=== PATIENT | male | born 1940 | race Caucasian/White ===

== ENCOUNTER 2018-05-27 11:19 | Emergency (ER) | payer OTHER ==
[~2018-05-27] VITALS: Ht 172.7 cm; Wt 89.1 kg
[~2018-05-27 11:19] MED LIST: CALC650T90 PO; DICL75EC11 PO; DIPH25TA39 PO; HYDR-5123 PO; METO50TE2 PO; TAMS0.4C96 PO; VITA1SGL PO; ZOLP-159 PO
[2018-05-27 11:20] VITALS: BP 135/70
[2018-05-27] MEDS ORDERED: diphenhydrAMINE 50 MG/ML VIAL IVP ONE (11:40)
[2018-05-27] MEDS ORDERED: FAMOTIDINE 20 MG/2 ML VIAL IVP ONE (11:40)
[2018-05-27] MEDS ORDERED: methylPREDNISolone SS 125 MG/2 ML VIAL IVP ONE (11:40)
[2018-05-27] MEDS ORDERED: cefTRIAXone 1,000 MG in DEXT 5% MINI-BAG PLUS 50 ML IV ONE (11:40)
[2018-05-27] MEDS ORDERED: AZITHROMYCIN 500 MG in DEXTROSE 5% 250 ML IV ONE (11:40)
[2018-05-27] MEDS ORDERED: IPRATROPIUM 0.02% 0.5 MG/2.5 ML NEBU INH ONE (11:40)
[2018-05-27] MEDS ORDERED: ALBUTEROL 0.083% 2.5 MG/3 ML NEBU INH ONE (11:40)
[2018-05-27] MEDS ORDERED: cefTRIAXone 1,000 MG VIAL ONE (11:55)
[2018-05-27] MEDS ORDERED: AZITHROMYCIN 500 MG INJ VIAL IV ONE (11:56)
[2018-05-27 12:11] LABS: BASOPHILS % (AUTO) 0.3 % (0.0-2.0); EOSINOPHILS # (AUTO) 0.1 K/uL (0-0.4); EOSINOPHILS % (AUTO) 1.2 % (0.0-4.0); HEMATOCRIT 48.3 % (36-52); HEMOGLOBIN 16.3 g/dL (12.0-18.0); LYMPHOCYTES # (AUTO) 1.7 K/uL (2.0-11.5); LYMPHOCYTES % (AUTO) 14.4 % (20.5-51.1); MEAN CORPUSCULAR HEMOGLOBIN 30 pg (27-31); MEAN CORPUSCULAR HGB CONC 34 g/dL (33-37); MONOCYTES # (AUTO) 0.6 K/uL (0.8-1.0); MONOCYTES % (AUTO) 4.7 % (1.7-9.3); NEUTROPHILS # (AUTO) 9.5 K/uL (1.8-7.7); NEUTROPHILS % (AUTO) 79.4 % (42.2-75.2); PLATELET COUNT (AUTO) 187 K/uL (140-450); RED BLOOD CELL COUNT(AUTO) 5.43 MIL/uL (4.20-6.10); RED CELL DISTRIBUTION WIDTH 13.6 % (11.6-13.7)
[2018-05-27 12:27] LABS: ALBUMIN 3.5 g/dL (3.4-5.0); ANION GAP 9.9 (8-16); ASPARTATE AMINOTRANSFERASE 12 U/L (15-37); CARBON DIOXIDE 26.2 mmol/L (21-32); CHLORIDE 109 mmol/L (98-107); CREATININE 1.1 mg/dL (0.7-1.3); GLUCOSE 126 mg/dL (74-106); POTASSIUM 4.1 mmol/L (3.5-5.1); SODIUM SERUM 141 mmol/L (136-145); TOTAL BILIRUBIN 0.7 mg/dL (0.0-1.0); UREA NITROGEN, BLOOD 16 mg/dL (7-18)
[2018-05-27] MEDS ORDERED: HYDR-5123 PO (12:31)
[2018-05-27] MEDS ORDERED: [UNRECOGNIZED DRUG - CODE] PO (12:31)
[2018-05-27 14:15] LABS: APPEARANCE,URINE SLIGHTLY CLOUDY (CLEAR); BILIRUBIN,URINE NEGATIVE (NEGATIVE); BLOOD, URINE NEGATIVE (NEGATIVE); COLOR,URINE YELLOW (YELLOW); LEUKOCYTE ESTERASE ,URINE 1+ (NEGATIVE); NITRITE, URINE POSITIVE (NEGATIVE); PH,URINE 5.5 (5.0-9.0); UGLUCOSE NEGATIVE (NEGATIVE)
[2018-05-27 14:24] VITALS: BP 128/73
[2018-05-27 14:24] LABS: RBC,URINE 0-5 (RARE) /HPF (0-5)
[2018-05-27 14:25] LABS: WBC,URINE 60-80 /HPF (0-5)
== END 2018-05-27 14:24 | disposition home or self-care (01) ==
LOC: MED 11:19
DX: J45.909 Unspecified asthma, uncomplicated (principal); I10 Essential (primary) hypertension; Z79.899 Other long term (current) drug therapy
CPT/HCPCS: 36415; 71045; 80053; 81001; 84484; 85025; 87040; 87086; 87186; 94640; 96365; 96368; 96375; 99284; J0456; J0696; J1200; J2930; J3490; J7613; J7644; Q0092

== ENCOUNTER 2018-08-19 07:31 | Inpatient (IN) | payer OTHER ==
[~2018-08-19] VITALS: Ht 167.6 cm; Wt 89.1 kg
[~2018-08-19 07:31] MED LIST changes: -CALC650T90 PO; -DICL75EC11 PO; -DIPH25TA39 PO; -TAMS0.4C96 PO; -VITA1SGL PO; -ZOLP-159 PO; +[UNRECOGNIZED DRUG - CODE] PO
[2018-08-19 07:36] VITALS: BP 139/97
--- NOTE | 2018-08-19 07:45 | NUR ---
Patient ambulated to bed 9. RN evaluating patient at bedside.
--- NOTE | 2018-08-19 07:50 | NUR ---
Dr. Rubin evaluating patient at bedside.
--- NOTE | 2018-08-19 08:00 | NUR ---
bindery technician at bedside.
--- NOTE | 2018-08-19 08:04 | NUR ---
C/O COUGH AND SOB X1 WEEK. PT REPORTS MOIST PRODUCTIVE COUGH WITH THICK YELLOW PLEM. PT TACHYPNIEC, WHEEZES THROUGHOUT. PT REPORTS 7/10 BODY ACHES. DENIES N/V/D OR FEVER. . DENIES N/V/D; SKIN IS PINK/WARM/DRY; AAOX4 WITH EVEN AND STEADY GAIT; LUNGS CLEAR BL; HR EVEN AND REGULAR; PT DENIES ANY FEVER, CP, OR COUGH AT THIS TIME; PATIENT STATES PAIN OF 7/10 AT THIS TIME; VSS; PATIENT POSITIONED FOR COMFORT; HOB ELEVATED; BEDRAILS UP X2; BED DOWN. ER MD MADE AWARE OF PT STATUS.
--- NOTE | 2018-08-19 08:06 | NUR ---
EKG completed at bedside by EMT.
[2018-08-19 08:44] LABS: BASOPHILS # (AUTO) 0.1 K/uL (0.00-0.22); BASOPHILS % (AUTO) 0.7 % (0.0-2.0); EOSINOPHILS # (AUTO) 0.4 K/uL (0-0.4); HEMATOCRIT 48.1 % (36-52); HEMOGLOBIN 16.4 g/dL (12.0-18.0); LYMPHOCYTES # (AUTO) 1.5 K/uL (2.0-11.5); LYMPHOCYTES % (AUTO) 10.1 % (20.5-51.1); MEAN CORPUSCULAR HEMOGLOBIN 30 pg (27-31); MEAN CORPUSCULAR HGB CONC 34 g/dL (33-37); MEAN CORPUSCULAR VOLUME 88.8 fL (80-94); MONOCYTES # (AUTO) 0.9 K/uL (0.8-1.0); MONOCYTES % (AUTO) 5.9 % (1.7-9.3); NEUTROPHILS # (AUTO) 11.7 K/uL (1.8-7.7); NEUTROPHILS % (AUTO) 80.3 % (42.2-75.2); PLATELET COUNT (AUTO) 169 K/uL (140-450); RED BLOOD CELL COUNT(AUTO) 5.42 MIL/uL (4.20-6.10); RED CELL DISTRIBUTION WIDTH 14.6 % (11.6-13.7); WHITE BLOOD COUNT (AUTO) 14.5 K/uL (4.8-10.8)
[2018-08-19 08:54] LABS: CHLORIDE 101 mmol/L (98-107); POTASSIUM 3.8 mmol/L (3.5-5.1); SODIUM SERUM 139 mmol/L (136-145)
[2018-08-19 08:55] LABS: ANION GAP 19.6 (8-16); CARBON DIOXIDE 22.2 mmol/L (21-32); CREATININE 1.2 mg/dL (0.7-1.3); GLUCOSE 176 mg/dL (74-106); UREA NITROGEN, BLOOD 11 mg/dL (7-18)
[2018-08-19] MEDS ORDERED: NACL 0.9% 1,000 ML IV ONE (08:55)
[2018-08-19 09:00] LABS: ALBUMIN 3.3 g/dL (3.4-5.0); ASPARTATE AMINOTRANSFERASE 18 U/L (15-37); TOTAL BILIRUBIN 1.2 mg/dL (0.0-1.0)
[2018-08-19] MEDS ORDERED: DOXYCYCLINE 100 MG in DEXTROSE 5% 100 ML IV STA (09:32)
[2018-08-19] MEDS ORDERED: cefTRIAXone 1,000 MG VIAL ONE (09:49)
--- NOTE | 2018-08-19 10:00 | NUR ---
Dr. Rubin re-evaluating patient at bedside.
[2018-08-19] MEDS ORDERED: DOCUSATE SODIUM 100 MG GELCAP PO PRN (10:35)
[2018-08-19] MEDS ORDERED: MORPHINE SULFATE 2 MG/ML SYR IVP PRN (10:35)
[2018-08-19] MEDS ORDERED: HYDROcodone/APAP 5/325 MG 1 TAB TAB PO PRN (10:35)
[2018-08-19] MEDS ORDERED: ACETAMINOPHEN 325 MG TAB PO PRN (10:35)
[2018-08-19] MEDS ORDERED: ONDANSETRON 4 MG/2 ML VIAL IM/IVP PRN (10:35)
--- NOTE | 2018-08-19 10:45 | NUR ---
Dr. Arora evaluating patient at bedside.
[2018-08-19 11:07] LABS: MAGNESIUM 1.8 mg/dL (1.8-2.4); PHOSPHORUS 3.1 mg/dL (2.5-4.9); THYROID STIMULATING HORMONE 1.43 uIU/mL (0.34-3.74)
[2018-08-19] MEDS ORDERED: ALBUTEROL SULFATE/IPRATROPIU 3 ML SOL IH PRN (11:15)
[2018-08-19 11:30] VITALS: BP 121/85
--- NOTE | 2018-08-19 11:30 | NUR ---
PATIENT ARRIVED UNIT VIA GURNEY ACCOMPANIED BY ER NURSE AND DAUGHTER. PATIENT IS ALERT AND ORIENTED, SLOVENIAN SPEAKING ONLY. ABLE TO FOLLOW SIMPLE COMMAND AND MAKE NEEDS KNOWN. RESPIRATION EVEN AND UNLABORED ON 2LPM VIA NC. DENIES PAIN AND SOB. IV ON R HAND 22G, PATENT AND INTACT, ON NS WIDE OPEN BOLUS. SKIN INTACT AND DRY. ABLE TO AMBULATE WITH ASSIST. CONTINENT. PROVIDED BEDSIDE URANAL. ORIENTED PATIENT TO THE ROOM AND HOW TO USE THE CALL LIGHT, TV, BED REMOTE, TELEPHONE AND BATHROOM. PATIENT AND DAUGHTER VERBALIZED UNDERSTANDING. DISCUSSED PLAN OF CARE WITH PATIENT AND DAUGHTER, BOTH VERBALIZED OK. CHANGED PATIENT INTO YELLOW GOWN, SOCKS, AND APPLIED YELLOW WRIST BAND. BED ALARM ACTIVATED. VITAL SIGNS TAKEN AND MRSA NARES COLLECTED. CONTACT PRECAUTION INITIALED. TELE MONITOR ATTACHED. BED IN LOW POSITION AND CALL LIGHT WITHIN REACH. INSTRUCTED PATIENT TO USE THE CALL LIGHT FOR ANY ASSISTANCE AND PATIENT WAS AWARE.
--- NOTE | 2018-08-19 11:30 | NUR ---
transferred pt to tele 116 by mick with rn and mt. pt awake, alert. no s/s of respiratory distress noted. pt's daughter with pt. pt walked from hallway to pt's room. all personal belongings with pt.
--- NOTE | 2018-08-19 11:31 | NUR ---
report given to nancy, notified nancy pt was on piggybag abx and pt's iv # 24 so bolus does not finish yet.
[2018-08-19] MEDS ORDERED: ASPI-1718 PO (11:45)
[2018-08-19] MEDS ORDERED: HYDROcodone/APAP 7.5/325 MG 1 TAB PO SCH (11:45)
--- NOTE | 2018-08-19 11:45 | NUR ---
RECEIVED CRITICAL LAB VALUE FOR LACTIC ACID 2.6. NOTIFIED DR MARY AND HE WAS AWARE.
--- NOTE | 2018-08-19 11:50 | NUR ---
PROVIDED SPUTUM SPECIMEN CUP TO PATIENT AND INSTRUCTED PATIENT TO SPIT INTO THE CUP. ALSO PROVIDED INCENTIVE SPIROMETER TO PATIENT. EDUCATION PROVIDED TO PATIENT AND DAUGHTER SANDI AT BEDSIDE. SAFETY MEASURES IN PLACE.
[2018-08-19] MEDS ORDERED: HYDROcodone/APAP 7.5/325 MG 1 TAB PO PRN (11:55)
[2018-08-19] MEDS ORDERED: ASPIRIN 81 MG TAB.CHEW PO SCH (12:30)
[2018-08-19] MEDS: NACL 0.9% 1,000 ML IV SCH ×2 (12:59→20:32)
--- NOTE | 2018-08-19 13:11 | NUR ---
PATIENT IS SITTING UP ON BED AND EATING LUNCH. NO SIGNS OF DISTRESS NOTED. SAFETY MEASURES IN PLACE. TELE MONITOR IN PLACE.
[2018-08-19] MEDS: ALBUTEROL SULFATE/IPRATROPIU 3 ML SOL IH SCH ×2 (13:48→19:56)
[2018-08-19 16:00] VITALS: BP 137/77
--- NOTE | 2018-08-19 17:01 | NUR ---
PATIENT'S IV ON L HAND INFILTRATED. D/C IV AND CANNULA INTACT. STARTED IV ON LFA 22G, INTACT AND PATENT, INFUSING PER MD ORDER. PATIENT TOLERATED WELL. PATIENT'S FAMILY IS AT BEDSIDE. NO SIGNS OF DISTRESS NOTED. SAFETY MEASURE IN PLACE. TELE MONITOR ATTACHED.
--- NOTE | 2018-08-19 18:25 | NUR ---
PATIENT IS TALKING TO FAMILY AT BEDSIDE. NO SIGNS OF DISTRESS NOTED. SAFETY MEASURES IN PLACE. TELE MONITOR ATTACHED.
--- NOTE | 2018-08-19 19:30 | NUR ---
ENDORSED PATIENT AT BEDSIDE TO AMMONIA WORKER NURSE FOR CONTINUITY OF CARE. PATIENT IS IN A STABLE CONDITION.
--- NOTE | 2018-08-19 19:31 | NUR ---
RECEIVED REPORT FROM DAY SHIFT NURSE PEEWEE-RN AT BEDSIDE. AOX4-MOHAWK SPEAKING WITH FAMILY AT BEDSIDE. PT RESTING IN BED, ON 3L/NC WITH LEFT FA #22G RUNNING NS 0.9% @100ML/HR. DISCUSSED PLAN OF CARE AND PT VERBALIZED UNDERSTANDING. NO S/S OF RESPIRATORY DISTRESS OR DISCOMFORT NOTED AT THIS TIME. BED IN LOWEST POSITION, BED BREAKS ON, BOTH SIDE RAILS UP AND FALL PRECAUTIONS IN PLACE. BEDSIDE TABLE AND CALL LIGHT ARE WITHIN REACH. WILL CONTINUE TO MONITOR.
[2018-08-19 20:00] VITALS: BP 130/60
--- NOTE | 2018-08-19 20:00 | NUR ---
VITAL SIGNS TAKEN AND TOLERATED WELL. NO S/S OF RESPIRATORY DISTRESS OR DISCOMFORT NOTED AT THIS TIME. WILL CONTINUE TO MONITOR.
[2018-08-19] MEDS: traZODone 50 MG TAB PO SCH (21:06)
--- NOTE | 2018-08-19 21:12 | NUR ---
SCHEDULED MEDICATIONS GIVEN AND TOLERATED WELL. NO S/S OF RESPIRATORY DISTRESS OR DISCOMFORT NOTED AT THIS TIME. WILL CONTINUE TO MONITOR.
--- NOTE | 2018-08-19 22:00 | NUR ---
PT SLEEPING IN BED. NO S/S OF RESPIRATORY DISTRESS OR DISCOMFORT NOTED AT THIS TIME. WILL CONTINUE TO MONITOR.
[2018-08-20] VITALS: BP 106/49
--- NOTE | 2018-08-20 | NUR ---
VITAL SIGNS TAKEN AND TOLERATED WELL. NO S/S OF RESPIRATORY DISTRESS OR DISCOMFORT NOTED AT THIS TIME. WILL CONTINUE TO MONITOR.
--- NOTE | 2018-08-20 01:29 | NUR ---
RECEIVED A CRITICAL LAB VALUE: TROPONIN 0.[address] ESTEFANY ZABALA AND MD IS AWARE. NO NEW ORDERS. PT SLEEPING IN BED. NO S/S OF RESPIRATORY DISTRESS OR DISCOMFORT NOTED AT THIS TIME. WILL CONTINUE TO MONITOR.
--- NOTE | 2018-08-20 02:00 | NUR ---
PT SLEEPING IN BED. NO S/S OF RESPIRATORY DISTRESS OR DISCOMFORT NOTED AT THIS TIME. WILL CONTINUE TO MONITOR.
[2018-08-20 04:00] VITALS: BP 125/62
--- NOTE | 2018-08-20 04:00 | NUR ---
VITAL SIGNS TAKEN AND TOLERATED WELL. NO S/S OF RESPIRATORY DISTRESS OR DISCOMFORT NOTED AT THIS TIME. WILL CONTINUE TO MONITOR.
--- NOTE | 2018-08-20 06:00 | NUR ---
PT RESTING IN BED. NO S/S OF RESPIRATORY DISTRESS OR DISCOMFORT NOTED AT THIS TIME. WILL CONTINUE TO MONITOR.
[2018-08-20] MEDS: NACL 0.9% 1,000 ML IV SCH ×2 (06:32→16:32)
--- NOTE | 2018-08-20 07:09 | NUR ---
ENDORSED PT CARE TO DAY SHIFT NURSE YONATAN FOR CONTINUITY OF CARE.
--- NOTE | 2018-08-20 07:11 | NUR ---
RECEIVED BEDSIDE REPORT FROM TIME STUDY ANALYST NURSE. PATIENT IS RESTING ON BED AT THIS TIME. PATIENT IS ALERT AND ORIENTED, MALAY SPEAKING ONLY. ABLE TO FOLLOW SIMPLE COMMAND AND MAKE NEEDS KNOWN. RESPIRATION EVEN AND UNLABORED ON 2LPM VIA NC. DENIES PAIN AND SOB. IV ON R HAND 22G, PATENT AND INTACT, INFUSING PER MD ORDER. SKIN INTACT AND DRY. ABLE TO AMBULATE WITH ASSIST. CONTINENT. PROVIDED BEDSIDE URANAL. DISCUSSED PLAN OF CARE WITH PATIENT AND PATIENT VERBALIZED OK. CONTACT PRECAUTION INITIALED. TELE MONITOR ATTACHED. BED IN LOW POSITION AND CALL LIGHT WITHIN REACH. INSTRUCTED PATIENT TO USE THE CALL LIGHT FOR ANY ASSISTANCE AND PATIENT WAS AWARE.
[2018-08-20] MEDS: ALBUTEROL SULFATE/IPRATROPIU 3 ML SOL IH SCH ×3 (07:33→20:30)
[2018-08-20 07:50] LABS: CHOL/HDL RATIO 4.4 (1-4.5)
[2018-08-20 08:00] VITALS: BP 135/97
--- NOTE | 2018-08-20 08:10 | NUR ---
COLLECTED URINE SPECIMEN VIA VOID AND DELIVERED IT TO LAB.
--- NOTE | 2018-08-20 08:18 | NUR ---
PATIENT HAS BEEN SCREENED AND CATEGORIZED HIGH NUTRITION RISK. PATIENT WILL BE SEEN WITHIN 1-2 DAYS OF ADMISSION. 08/20/18-08/21/[address]
[2018-08-20 08:26] LABS: BASOPHILS % (AUTO) 0.5 % (0.0-2.0); EOSINOPHILS # (AUTO) 0.3 K/uL (0-0.4); EOSINOPHILS % (AUTO) 3.8 % (0.0-4.0); HEMATOCRIT 42.9 % (36-52); HEMOGLOBIN 14.5 g/dL (12.0-18.0); LYMPHOCYTES # (AUTO) 2.1 K/uL (2.0-11.5); LYMPHOCYTES % (AUTO) 23.2 % (20.5-51.1); MEAN CORPUSCULAR HEMOGLOBIN 30 pg (27-31); MEAN CORPUSCULAR HGB CONC 34 g/dL (33-37); MEAN CORPUSCULAR VOLUME 89.7 fL (80-94); MONOCYTES # (AUTO) 0.6 K/uL (0.8-1.0); NEUTROPHILS # (AUTO) 6.1 K/uL (1.8-7.7); NEUTROPHILS % (AUTO) 65.5 % (42.2-75.2); PLATELET COUNT (AUTO) 161 K/uL (140-450); RED BLOOD CELL COUNT(AUTO) 4.78 MIL/uL (4.20-6.10); RED CELL DISTRIBUTION WIDTH 14.8 % (11.6-13.7); WHITE BLOOD COUNT (AUTO) 9.2 K/uL (4.8-10.8)
--- NOTE | 2018-08-20 08:33 | NUR ---
INSTRUCTED VISITORS TO PUT ON PPE PRIOR TO ENTER THE PATIENT ROOM FOR CONTACT ISOLATION AND VISITORS ARE AWARE. DAUGHTER SANDI IS AT BEDSIDE AND TALKING TO PATIENT. NO SIGNS OF DISTRESS NOTED.
[2018-08-20 08:40] LABS: ANION GAP 8.9 (8-16); CARBON DIOXIDE 28.1 mmol/L (21-32); CHLORIDE 108 mmol/L (98-107); GLUCOSE 122 mg/dL (74-106); SODIUM SERUM 141 mmol/L (136-145); UREA NITROGEN, BLOOD 10 mg/dL (7-18)
[2018-08-20 08:41] LABS: APPEARANCE,URINE CLEAR (CLEAR); BILIRUBIN,URINE NEGATIVE (NEGATIVE); BLOOD, URINE NEGATIVE (NEGATIVE); COLOR,URINE YELLOW (YELLOW); LEUKOCYTE ESTERASE ,URINE 1+ (NEGATIVE); NITRITE, URINE NEGATIVE (NEGATIVE); PH,URINE 5.5 (5.0-9.0); UGLUCOSE NEGATIVE (NEGATIVE)
[2018-08-20 08:42] LABS: PHOSPHORUS 3.6 mg/dL (2.5-4.9)
--- NOTE | 2018-08-20 08:45 | NUR ---
RECEIVED CRITICAL LAB VALUE FOR TROPONIN 0.[address] BECKHAM. DR BECKHAM WAS AWARE OF THE TROPONIN LAB VALUE.
[2018-08-20 08:56] LABS: RBC,URINE 0-5 /HPF (0-5); WBC,URINE 20-60 /HPF (0-5)
[2018-08-20] MEDS ORDERED: AZITHROMYCIN 500 MG in DEXTROSE 5% 250 ML IV SCH (09:00)
[2018-08-20] MEDS ORDERED: ASPIRIN 81 MG TAB.CHEW PO SCH (09:00)
[2018-08-20] MEDS: LORATADINE 10 MG TAB PO SCH (09:28)
[2018-08-20] MEDS: ASPIRIN 81 MG TAB.CHEW PO SCH (09:28)
[2018-08-20] MEDS: FAMOTIDINE 20 MG TAB PO SCH (09:28)
[2018-08-20] MEDS: LACTOBACILLUS RHAMNOSUS GG 1 EACH CAP PO SCH (09:29)
[2018-08-20] MEDS: METOPROLOL SUCCINATE 50 MG TABER PO SCH (09:29)
--- NOTE | 2018-08-20 09:48 | NUR ---
ADMINISTERED MEDS PER MD ORDER, PATIENT TOLERATED WELL. PATIENT IS RESTING ON BED AND TALKING TO DAUGHTER PETRA AT BEDSIDE. NO SIGNS OF DISTRESS NOTED. SAFETY MEASURES IN PLACE. TELE MONITOR ATTACHED.
--- NOTE | 2018-08-20 10:47 | NUR ---
PATIENT'S IV INFILTRATED, D/C IV AND CANNULA INTACT, MINIMAL BLEEDING AT IV SITE. STARTED NEW IV ON RFA 22, INTACT AND PATENT, CONTINUE INFUSING PER MD ORDER. PATIENT TOLERATED WELL. DAUGHTER PETRA IS AT BEDSIDE. NO SIGNS OF DISTRESS NOTED. SAFETY MEASURES IN PLACE.
[2018-08-20 12:00] VITALS: BP 148/75
--- NOTE | 2018-08-20 12:02 | NUR ---
08/20/18 RD INITIAL ASSESSMENT COMPLETED PLEASE REFER TO NUTRITION ASSESSMENT UNDER CARE ACTIVITY FOR ESTIMATED NUTRITIONAL NEEDS. RD RECOMMENDATIONS: 1. CONTINUE CARDIAC DIET TOLERATED. 2. RD PROVIDED VERBAL AND WRITTEN DIET EDUCATION ON CARDIAC DIET TO PT AND PT�S DAUGHTER. 3. RD WILL F/U 3-5 DAYS; MODERATE RISK. JENNIFER CEDENO, SONU
[2018-08-20] MEDS ORDERED: BENZONATATE 100 MG CAPLF PO SCH (12:27)
--- NOTE | 2018-08-20 13:15 | NUR ---
PATIENT IS SITTING UP ON A CHAIR AND TALKING TO VISITORS. DENIES PAIN AND SOB. NO SIGNS OF DISTRESS NOTED. TELE MONITOR ATTACHED. SAFETY MEASURES IN PLACE.
--- NOTE | 2018-08-20 15:32 | NUR ---
PATIENT IS TALKING TO VISITORS AT BEDSIDE, DENIES PAIN AND SOB. NO SIGNS OF DISTRESS NOTED. TELE MONITOR ATTACHED. SAFETY MEASURES IN PLACE.
[2018-08-20 16:00] VITALS: BP 137/81
--- NOTE | 2018-08-20 19:30 | NUR ---
ENDORSED PATIENT AT BEDSIDE TO SURGICAL INSTRUMENT MECHANIC NURSE FOR CONTINUITY OF CARE. PATIENT IS IN STABLE CONDITION.
[2018-08-20 20:00] VITALS: BP 132/80
[2018-08-20] MEDS: traZODone 50 MG TAB PO SCH (20:52)
--- NOTE | 2018-08-20 20:58 | NUR ---
PATIENT LYING DOWN IN BED WATCHING TV. NO DISTRESS NOTED. DENIES ANY PAIN. SCHEDULED MEDICATIONS DUE GIVEN. WILL CONTINUE TO MONITOR.
--- NOTE | 2018-08-20 23:15 | NUR ---
PATIENT LYING DOWN IN BED SLEEPING, AROUSABLE BY VOICE. NO DISTRESS NOTED. DENIES ANY PAIN. WILL CONTINUE TO MONITOR.
[2018-08-21] VITALS: BP 145/84
--- NOTE | 2018-08-21 01:33 | NUR ---
PATIENT LYING DOWN IN BED SLEEPING, AROUSABLE BY VOICE. CONDITION UNCHANGED. WILL CONTINUE TO MONITOR.
[2018-08-21] MEDS: NACL 0.9% 1,000 ML IV SCH ×3 (02:32→22:32)
--- NOTE | 2018-08-21 02:52 | NUR ---
PATIENT LYING DOWN IN BED SLEEPING, AROUSABLE BY VOICE. NO DISTRESS NOTED. CONDITION UNCHANGED. WILL CONTINUE TO MONITOR.
[2018-08-21 04:00] VITALS: BP 125/75
--- NOTE | 2018-08-21 07:20 | NUR ---
RECEIVED PT REPORT FROM ICT EDUCATOR NURSE. PT IS AWAKE AND ALERT, NO S/S OF ACUTE DISTRESS NOTED. PT IS ON 2L O2 NC, SKIN INTACT. FALL PRECAUTIONS AND CONTACT ISOLATION ARE IN PLACE. IV SITE NOTED ON THE RFA, 22 G, INFUSING NS 100 ML/HR. CALL LIGHT WITHIN REACH. WILL CONTINUE TO MONITOR PT.
--- NOTE | 2018-08-21 07:20 | NUR ---
GAVE REPORT TO AM NURSE FOR CONTINUITY FOR CARE. PATIENT IN STABLE CONDITION.
[2018-08-21 08:00] VITALS: BP 164/81
[2018-08-21] MEDS: ALBUTEROL SULFATE/IPRATROPIU 3 ML SOL IH SCH ×3 (08:10→18:59)
[2018-08-21 08:42] LABS: SODIUM SERUM 142 mmol/L (136-145)
[2018-08-21 08:43] LABS: ANION GAP 10.9 (8-16); CARBON DIOXIDE 28.1 mmol/L (21-32); CHLORIDE 107 mmol/L (98-107); GLUCOSE 109 mg/dL (74-106); UREA NITROGEN, BLOOD 8 mg/dL (7-18)
[2018-08-21] MEDS: LACTOBACILLUS RHAMNOSUS GG 1 EACH CAP PO SCH (08:46)
[2018-08-21] MEDS: METOPROLOL SUCCINATE 50 MG TABER PO SCH (08:47)
[2018-08-21] MEDS: ASPIRIN 81 MG TAB.CHEW PO SCH (08:47)
[2018-08-21] MEDS: FAMOTIDINE 20 MG TAB PO SCH (08:47)
[2018-08-21] MEDS: LORATADINE 10 MG TAB PO SCH (08:47)
[2018-08-21 09:04] LABS: BASOPHILS % (AUTO) 0.5 % (0.0-2.0); EOSINOPHILS # (AUTO) 0.4 K/uL (0-0.4); EOSINOPHILS % (AUTO) 4.2 % (0.0-4.0); HEMATOCRIT 43.6 % (36-52); HEMOGLOBIN 14.7 g/dL (12.0-18.0); LYMPHOCYTES # (AUTO) 1.7 K/uL (2.0-11.5); LYMPHOCYTES % (AUTO) 20.5 % (20.5-51.1); MEAN CORPUSCULAR HEMOGLOBIN 30 pg (27-31); MEAN CORPUSCULAR HGB CONC 34 g/dL (33-37); MEAN CORPUSCULAR VOLUME 89.9 fL (80-94); MONOCYTES # (AUTO) 0.6 K/uL (0.8-1.0); MONOCYTES % (AUTO) 7.3 % (1.7-9.3); NEUTROPHILS # (AUTO) 5.8 K/uL (1.8-7.7); NEUTROPHILS % (AUTO) 67.5 % (42.2-75.2); PLATELET COUNT (AUTO) 185 K/uL (140-450); RED BLOOD CELL COUNT(AUTO) 4.84 MIL/uL (4.20-6.10); RED CELL DISTRIBUTION WIDTH 14.4 % (11.6-13.7); WHITE BLOOD COUNT (AUTO) 8.5 K/uL (4.8-10.8)
--- NOTE | 2018-08-21 09:05 | NUR ---
AM MEDS ADMINISTERED, PT TOLERATED WELL. BED LINENS CHANGED. VISITORS ARE AT BEDSIDE.
[2018-08-21] MEDS ORDERED: BENZONATATE 100 MG CAPLF PO ONE (09:45)
[2018-08-21 12:00] VITALS: BP 152/81
[2018-08-21 12:07] LABS: MAGNESIUM 1.9 mg/dL (1.8-2.4); PHOSPHORUS 2.9 mg/dL (2.5-4.9)
[2018-08-21] MEDS: BENZONATATE 100 MG CAPLF PO PRN ×2 (12:58→21:32)
--- NOTE | 2018-08-21 15:15 | NUR ---
PT TAKING A SHOWER AT THIS TIME, HIS DAUGHTER SANDI IS ASSISTING HIM. SHOWER SUPPLIES GIVEN TO PT AND BED LINENS CHANGED.
[2018-08-21 16:00] VITALS: BP 143/92
--- NOTE | 2018-08-21 19:15 | NUR ---
PT ENDORSED TO SOUND SYSTEM INSTALLER IN STABLE CONDITION.
--- NOTE | 2018-08-21 19:15 | NUR ---
RECEIVED REPORT FROM SANDI JEFFRIES DAYSHIFT NURSE, PT IN STABLE CONDITION.
[2018-08-21 20:00] VITALS: BP 169/82
--- NOTE | 2018-08-21 20:00 | NUR ---
PT IN ROOM FAMILY AT BEDSIDE. HE IS SITTING UP AOX4 WITH 2 LITERS VIA N/C IN PLACE. PT HAS IV SITE R F/A 22G RUNNING N/S AT LOO. PT NOTED WITH INTERMITTED COUGH NO PHLEGM PRODUCTION NOTED. PT LUNG SOUNDS DIMINISHED, PT ENCOURAGE TO USE INCENTIVE SPIROMETER AT BEDSIDE. PT HAS NO C/O OF PAIN AT THIS TIME. SCD PLACE D ON PT LOWER EXTREMITIES. PT EXPLAINED THROUGH EXTRACTOR OPERATOR HELPER THAT HE DOSENT LIKE LIZ BUT UNDERSTAND WHY THEY ARE ORDERED, HE SAID HE WOULD TRY AND TOLERATE THEM. BUT MAY OPT NOT TO WEAR THEM. PRIMARY NURSE VERBALIZED UNDERSTANDING. V/S FOLLOWS T 97.5 P 76 R 18 B/P 169/82 02 94% ON 2 LITERS VIA N/C. ALL FALLS AND CONTACT PRECAUTIONS IN PLACE.
[2018-08-21] MEDS: traZODone 50 MG TAB PO SCH (21:31)
--- NOTE | 2018-08-21 21:49 | NUR ---
SPOKE WITH DR. COLE CONCERNING PT B/P, NEW ORDERED NOTED FOR 1X VASOTEC 2.5MG IVP WILL CONTINUE TO MONITOR BLOOD PRESSURE, PT ALSO GIVEN PRN TELSON PERLES FOR UNPRODUCTIVE COUGH.
[2018-08-21] MEDS ORDERED: ENALAPRILAT 2.5 MG/2 ML VIAL IVP SCH (22:00)
--- NOTE | 2018-08-21 23:00 | NUR ---
PT IN BED SLEEPING, NO S/S OF PAIN OR DISTRESS NOTED V/S FOLLOWS T 98.1. P 60 R 18 B/P 128/60 02 96% WITH 2 LITERS VIA N/C. PT WAS FOUND WITH IV PULLED OUT AND N/C OFF. N/C PLACED ON PT. AND WILL PROVIDE NEW OV SITE FOR PT.
[2018-08-22] VITALS: BP 128/60
--- NOTE | 2018-08-22 02:30 | NUR ---
PT AWOKE AND WAS WALKING AROUND ROOM AND STARTED TO AMBULATE IN [place] WITH A CANE. PT WAS UNSURE WHERE HE WAS, PT ORIENTED VIA AID SANDI COFFMAN WAS ABLE TO TELL HIM IN [place] THAT HE IS IN [facility]. PT WAS ASSISTED BACK TO BED.
--- NOTE | 2018-08-22 03:30 | NUR ---
PT SLEEPING IN BED ALL FALLS PRECAUTIONS IN PLACE.
[2018-08-22 04:00] VITALS: BP 158/66
--- NOTE | 2018-08-22 06:00 | NUR ---
NEW IV SITE PROVIDED ON R HAND 22G.
[2018-08-22] MEDS ORDERED: CLINDAMYCIN 600 MG in DEXTROSE 5% 50 ML IV SCH ×2 (06:45→13:00)
--- NOTE | 2018-08-22 07:15 | NUR ---
CARE ENDORSED TO AM SHIFT, PT IN STABLE CONDITION.
--- NOTE | 2018-08-22 07:30 | NUR ---
RECEIVED REPORT FROM MAIL CARRIER, PT RESTING COMFORTABLY. PT STATED COLLEGE SPORTS ASSISTANT WANTED TO SPEAK TO PT'S DAUGHTER. WILL REACH OUT TO DAUGHTER TO CONTACT COLLEGE SPORTS ASSISTANT'S OFFICE. CALL LIGHT WITHIN REACH, WILL CONTINUE TO MONITOR
[2018-08-22] MEDS: ALBUTEROL SULFATE/IPRATROPIU 3 ML SOL IH SCH ×3 (07:33→19:42)
[2018-08-22] MEDS ORDERED: CLINDAMYCIN PHOS 600MG/D5W PM 50 ML IV SCH (07:35)
[2018-08-22 08:00] VITALS: BP 160/103
[2018-08-22] MEDS: LORATADINE 10 MG TAB PO SCH (09:15)
[2018-08-22] MEDS: LACTOBACILLUS RHAMNOSUS GG 1 EACH CAP PO SCH (09:15)
[2018-08-22] MEDS: ASPIRIN 81 MG TAB.CHEW PO SCH (09:16)
[2018-08-22] MEDS: METOPROLOL SUCCINATE 50 MG TABER PO SCH (09:16)
[2018-08-22] MEDS: FAMOTIDINE 20 MG TAB PO SCH (09:23)
--- NOTE | 2018-08-22 10:40 | NUR ---
FAXED INQUIRY TO [facility]. [phone] PHONE [phone]
--- NOTE | 2018-08-22 11:18 | NUR ---
PT WATCHING TV COMFORTABLY, DENIES PAIN, IN NO RESPIRATORY DISTRESS, NO LABORED BREATHING, HUNG IV ABX. FINE CRACKLES THROUGHOUT. WAITING FOR BREATHING TX AT 1100.
[2018-08-22] MEDS ORDERED: LISINOPRIL 5 MG TAB PO SCH ×2 (11:56→21:00)
[2018-08-22 12:00] VITALS: BP 159/70
--- NOTE | 2018-08-22 12:00 | NUR ---
SPOKE WITH VI AT [facility]. NO BEDS TODAY, MAYBE TOMORROW.
--- NOTE | 2018-08-22 12:40 | NUR ---
RECEIVED A CALL BACK FROM VI AT [facility]. HE SAID THEY CAN TAKE THE PATIENT TODAY OR TOMORROW. ROOM 3B UNDER DR. CRANE. I WAS REQUESTED TO SPEAK THE WITH DAUGHTER, SANDI. SHE ASKED IF THE PATIENT COULD GO TO A FACILITY CLOSER, HERE IN [place]. I SPOKE WITH DR. NEUMANN. HE SAID TO TRY [facility]. Addendum: 08/22/18 at 1302 by Roxanne Flores FAXED INQUIRY TO [facility].
[2018-08-22] MEDS: CLINDAMYCIN PHOS 600MG/D5W PM 50 ML IV SCH ×2 (13:02→21:00)
[2018-08-22 13:35] LABS: ANION GAP 8.9 (8-16); CARBON DIOXIDE 30.1 mmol/L (21-32); CHLORIDE 103 mmol/L (98-107); GLUCOSE 106 mg/dL (74-106); SODIUM SERUM 138 mmol/L (136-145); UREA NITROGEN, BLOOD 8 mg/dL (7-18)
[2018-08-22 13:44] LABS: HEMATOCRIT 46.8 % (36-52); HEMOGLOBIN 15.9 g/dL (12.0-18.0); MEAN CORPUSCULAR HEMOGLOBIN 30 pg (27-31); MEAN CORPUSCULAR HGB CONC 34 g/dL (33-37); MEAN CORPUSCULAR VOLUME 89.4 fL (80-94); PLATELET COUNT (AUTO) 213 K/uL (140-450); RED BLOOD CELL COUNT(AUTO) 5.23 MIL/uL (4.20-6.10); RED CELL DISTRIBUTION WIDTH 14.4 % (11.6-13.7); WHITE BLOOD COUNT (AUTO) 7.7 K/uL (4.8-10.8)
--- NOTE | 2018-08-22 14:23 | NUR ---
SAMIRA FROM [facility] [place]. THEY CAN TAKE THE PATIENT UPON DISCHARGED ROOM 9B UNDER DR. PRICE.
[2018-08-22 14:37] LABS: BASOPHILS % (AUTO) 0.4 % (0.0-2.0); EOSINOPHILS # (AUTO) 0.4 K/uL (0-0.4); EOSINOPHILS % (AUTO) 4.6 % (0.0-4.0); LYMPHOCYTES # (AUTO) 1.8 K/uL (2.0-11.5); LYMPHOCYTES % (AUTO) 23.5 % (20.5-51.1); MONOCYTES # (AUTO) 0.5 K/uL (0.8-1.0); NEUTROPHILS % (AUTO) 64.5 % (42.2-75.2)
[2018-08-22 16:00] VITALS: BP 144/78
--- NOTE | 2018-08-22 16:00 | NUR ---
PT AMBULATED ACROSS UNIT X2 WITH FAMILY MEMBERS. PT TOLERATED WALK WELL. DID NOT APPEAR IN RESPIRATORY DISTRESS, NO LABORED BREATHING. PT WENT BACK TO ROOM, RESTING COMFORTABLY IN THE CHAIR, CALL LIGHT WITHIN REACH, WILL CONTINUE TO MONITOR
[2018-08-22] MEDS: NACL 0.9% 1,000 ML IV SCH (18:00)
--- NOTE | 2018-08-22 19:15 | NUR ---
RECEIVED REPORT FROM AM SHIFT AT BEDSIDE FOR CONTINUITY OF CARE, PT IN STABLE CONDITION.
--- NOTE | 2018-08-22 19:20 | NUR ---
ENDORSED PT TO ROPE TOW OPERATOR RN. PT IN STABLE CONDITION.
[2018-08-22 20:00] VITALS: BP 152/67
--- NOTE | 2018-08-22 21:00 | NUR ---
PT IN BED WITH ALL FALLS PRECAUTIONS IN PLACE. IV SITE ON R HAND 22 GUAGE INTACT AND FLUSHED PATENT. PT IS AOX3 WITH PERIODS OF CONFUSION. LUNGS SOUNDS DIMINISHED, BOWEL SOUNDS PRESENT. PT NOTED COUGHING AND WAS GIVEN PRN TESSALON PERLES FOR COUGH. IV ABT CLINDAMYCIN DUE AT THIS TIME AND WAS HUNG ORDERED, PT ALSO GIVEN SCHEDULED DESYREL, ZESTRIL AND HEPARIN FOR DVT PREVENTION. V/S A FOLLOWS T 97.7 P 65 R 18 B/P 152/67 02 96% ON ROOM AIR. PT HAD NO C/O OF PAIN OR DISTRESS. CALL BARRERA IN REACH AND ALL REQUESTED NEEDS ATTENDED.
[2018-08-22] MEDS: traZODone 50 MG TAB PO SCH (22:05)
[2018-08-22] MEDS: BENZONATATE 100 MG CAPLF PO PRN (22:11)
[2018-08-23] VITALS: BP 134/93
--- NOTE | 2018-08-23 00:33 | NUR ---
PT IN BED, RESTING WITH EYES CLOSED, BUT AROUSABLE TO NAME AND LIGHT TOUCH, ALL FALLS PRECAUTIONS IN PLACE. PT HAS NO C/O VOICED AT THIS TIME AND DENIES PAIN. IV SITE ON R HAND INTACT AND RUNNING N/S AT 60 ORDERED. PT V/S FOLLOWS T 97.5 P 58 R 18 B/P 134/93 02 94% ON ROOM AIR.
--- NOTE | 2018-08-23 02:15 | NUR ---
PT IN BED SLEEPING NO S/S OF PAIN OR DISTRESS NOTED. ALL FALLS PRECAUTIONS OBSERVED. IV SITE INTACT AND RUNNING N/S AT 100MLS/ ORDERED.
[2018-08-23 04:00] VITALS: BP 160/82
[2018-08-23] MEDS: NACL 0.9% 1,000 ML IV SCH (05:32)
[2018-08-23] MEDS: CLINDAMYCIN PHOS 600MG/D5W PM 50 ML IV SCH (05:33)
--- NOTE | 2018-08-23 05:53 | NUR ---
PT AWAKE AND AMBULATED TO TOILET AND BACK WITH CANE. NO C/O VOICED AT THIS TIME. V/S FOLLOWS T 97.5 P 68 R 18 B/P 160/82 02 95% ON ROOM AIR. CLINDAMYCIN HUNG AND RUNNING ORDERED.
[2018-08-23] MEDS: ALBUTEROL SULFATE/IPRATROPIU 3 ML SOL IH SCH (07:00)
--- NOTE | 2018-08-23 07:15 | NUR ---
CONTINUITY OF CARE TO BE ENDORSED TO NEXT SHIFT, PT IN STABLE CONDITION.
--- NOTE | 2018-08-23 07:16 | NUR ---
RECEIVED BEDSIDE REPORT FROM NIGHTSHIFT RN. PT A/O X4. LAYING IN BED. NO RESP DISTRESS. ROOM AIR. SKIN INTACT. R HAND 22 G NS 60. CLEAN DRY INTACT. FALL RISK PRECAUTIONS. AMBULATES WITH CANE. CONTINENT. BED IN LOWEST POSITION. CALL LIGHT WITHIN REACH. PT ABLE TO MAKE NEEDS KNOWN. PT IN STABLE CONDITION.
[2018-08-23 08:00] VITALS: BP 149/77
[2018-08-23 08:18] LABS: BASOPHILS # (AUTO) 0.1 K/uL (0.00-0.22); BASOPHILS % (AUTO) 0.8 % (0.0-2.0); EOSINOPHILS # (AUTO) 0.4 K/uL (0-0.4); EOSINOPHILS % (AUTO) 5.4 % (0.0-4.0); HEMATOCRIT 44.9 % (36-52); HEMOGLOBIN 15.2 g/dL (12.0-18.0); LYMPHOCYTES # (AUTO) 1.6 K/uL (2.0-11.5); LYMPHOCYTES % (AUTO) 21.8 % (20.5-51.1); MEAN CORPUSCULAR HEMOGLOBIN 30 pg (27-31); MEAN CORPUSCULAR HGB CONC 34 g/dL (33-37); MEAN CORPUSCULAR VOLUME 89.6 fL (80-94); MONOCYTES # (AUTO) 0.6 K/uL (0.8-1.0); MONOCYTES % (AUTO) 8.4 % (1.7-9.3); NEUTROPHILS # (AUTO) 4.6 K/uL (1.8-7.7); NEUTROPHILS % (AUTO) 63.6 % (42.2-75.2); PLATELET COUNT (AUTO) 218 K/uL (140-450); RED BLOOD CELL COUNT(AUTO) 5.01 MIL/uL (4.20-6.10); RED CELL DISTRIBUTION WIDTH 14.4 % (11.6-13.7); WHITE BLOOD COUNT (AUTO) 7.2 K/uL (4.8-10.8)
[2018-08-23 08:28] LABS: CARBON DIOXIDE 28.4 mmol/L (21-32); CHLORIDE 105 mmol/L (98-107); CREATININE 0.9 mg/dL (0.7-1.3); GLUCOSE 106 mg/dL (74-106); POTASSIUM 4.4 mmol/L (3.5-5.1); SODIUM SERUM 142 mmol/L (136-145); UREA NITROGEN, BLOOD 7 mg/dL (7-18)
--- NOTE | 2018-08-23 09:00 | NUR ---
PT SITTING IN CHAIR WATCHING TV. NO SIGNS OF DISTRESS WILL CONTINUE TO MONITOR.
[2018-08-23] MEDS ORDERED: LORA10TA19 PO (09:16)
[2018-08-23] MEDS ORDERED: ALBU3SOL83 IH (09:16)
[2018-08-23] MEDS ORDERED: ACET-9529 PO (09:16)
[2018-08-23] MEDS ORDERED: LISI10TA11 PO (09:16)
[2018-08-23] MEDS ORDERED: DOCU-299 PO (09:16)
[2018-08-23] MEDS ORDERED: BENZ100C6 PO (09:16)
[2018-08-23] MEDS ORDERED: ACET-1182 PO (09:16)
[2018-08-23] MEDS ORDERED: FAMO20TA13 PO (09:16)
[2018-08-23] MEDS: LACTOBACILLUS RHAMNOSUS GG 1 EACH CAP PO SCH (09:47)
[2018-08-23] MEDS: LORATADINE 10 MG TAB PO SCH (09:47)
[2018-08-23] MEDS: METOPROLOL SUCCINATE 50 MG TABER PO SCH (09:48)
[2018-08-23] MEDS: ASPIRIN 81 MG TAB.CHEW PO SCH (09:48)
[2018-08-23] MEDS: FAMOTIDINE 20 MG TAB PO SCH (09:48)
--- NOTE | 2018-08-23 10:00 | NUR ---
ADMINISTERED MEDS TO PT. PT TOLERATED WELL. PT REQUESTED TO INSERT NEW IV SITE. NEW IV PLACED IN RIGHT UPPER ARM. PT TOLERATED WELL. IV SITE PATENT, CLEAN AND INTACT. NO COMPLAINTS AT THIS TIME. PT SITTING IN CHAIR WATCHING TV. CALL LIGHT WITHIN REACH.
--- NOTE | 2018-08-23 10:21 | NUR ---
SPOKE WITH SAMIRA AT [facility]. FAXED ORDER TO HER. SHE SAID THE PATIENT WILL GO TO ROOM 9B UNDER DR[address] PRICE I CALLED LINDSEY FROM [facility] [phone]. I CALLED [facility] AND LEFT MESSAGE FOR VI IN ADMITTING THAT PATIENT WILL BE GOING TO ANOTHER SNF. I CALLED DONYA JEFFRIES AND INFORMED HER OF THE TRANSFER TO [facility] AND ROOM NUMBER. PHONE [facility] [phone]. SAMIRA AT [facility] SAID THE DAUGHTER SAW THE ROOM YESTERDAY AT [facility] AND ASKED FOR A 2 BEDROOM. SAMIRA SAID SHE IS TRYING TO ACCOMMODATE THAT REQUEST. I ASKED DONYA RN TO INFORM THE DAUGHTER. I CALLED [facility] AND SET UP WC TRANSPORT FOR 1P.M. DONYA JEFFRIES AWARE.
--- NOTE | 2018-08-23 10:27 | NUR ---
SPOKE TO SANDI QUEEN, DAUGHTER AT [phone] SHE IS AWARE THAT PATIENT WILL BE TRANSFERRED TO [facility] TODAY IN ROOM 9B, SHE IS AWARE IT IS NOT A TWO BED LIKE SHE REQUESTED. TOLD HER THE ONLY THING PENDING IS TRANSPORT. SHE VERBALIZED UNDERSTANDING AND THANKED ME FOR INFORMING HER.
--- NOTE | 2018-08-23 11:33 | NUR ---
SANDI, DAUGHTER AWARE PT WILL LEAVE AT 1. PT AWARE OF TIME OF DISCHARGE.
[2018-08-23] MEDS ORDERED: CLIN600P4 IV (12:16)
[2018-08-23 12:19] VITALS: BP 148/81
--- NOTE | 2018-08-23 12:30 | NUR ---
GAVE TELEPHONE REPORT TO ERIC FROM [facility]. ALL QUESTIONS ANSWERED. GAVE CALL BACK NUMBER. NO FURTHER QUESTIONS.
--- NOTE | 2018-08-23 13:30 | NUR ---
GAVE BEDSIDE REPORT TO PRIMIER STAFF, EDUCATED PATIENT ON DISEASE PROCESS, ABN S/SX, WHEN TO GO TO THE ER, EDUCATED ON CONTINUED MEDS AND NEW MEDS, IV ON JOHN 22G SL, FOR CONTINUED ANTIBIOTICS, PATIENT HAS F/U APPOINTMENT W PCP, PNA AND FLU VACCINE UP TO DATE. PATIENT AWARE HE IS GOING TO [facility] FOR PT AND IV ANTIBIOTICS. PATIENT SIGNED PAPERWORK AND LEFT IN STABLE CONDITION. TELE MONITOR REMOVED AND ID BANDS REMOVED
== END 2018-08-23 13:30 | DRG 871 ==
LOC: MED 07:31 → MTU 10:32
PROVIDERS: ADMIT General Practice; ATTEND General Practice
DX: A41.9 Sepsis, unspecified organism (principal); J69.0 Pneumonitis due to inhalation of food and vomit; I21.A1 Myocardial infarction type 2; E44.0 Moderate protein-calorie malnutrition; Z80.42 Family history of malignant neoplasm of prostate; I10 Essential (primary) hypertension; N40.0 Benign prostatic hyperplasia without lower urinary tract symptoms; R65.20 Severe sepsis without septic shock; G47.00 Insomnia, unspecified; F17.210 Nicotine dependence, cigarettes, uncomplicated; E11.65 Type 2 diabetes mellitus with hyperglycemia; M54.5 Low back pain; M17.12 Unilateral primary osteoarthritis, left knee; F32.9 Major depressive disorder, single episode, unspecified; E66.9 Obesity, unspecified; J40 Bronchitis, not specified as acute or chronic; F43.9 Reaction to severe stress, unspecified; Z68.31 Body mass index [BMI] 31.0-31.9, adult; Z96.641 Presence of right artificial hip joint; Z88.8 Allergy status to other drugs, medicaments and biological substances; Z90.79 Acquired absence of other genital organ(s); Z81.8 Family history of other mental and behavioral disorders; Z82.49 Family history of ischemic heart disease and other diseases of the circulatory system
CPT/HCPCS: 36415; 71045; 80048; 80053; 81001; 82150; 83036; 83605; 83690; 83735; 83880; 84100; 84443; 84484; 85025; 85610; 85730; 87040; 87070; 87081; 87086; 87205; 87804; 93005; 94640; 96365; 96367; 97110; 97116; 97530; 99285; J0456; J0696; J1644; J3490; J7030; J7060; J7620; Q0092

== ENCOUNTER 2019-07-04 16:21 | Emergency (ER) | payer OTHER ==
[~2019-07-04] VITALS: Ht 175.3 cm; Wt 89.8 kg
[~2019-07-04 16:21] MED LIST changes: +ACET-1182 PO; +ACET-9529 PO; +ALBU3SOL83 IH; +ASPI-1822 PO; +BENZ100C6 PO; +CLIN600P4 IV; +DOCU-299 PO; +FAMO20TA13 PO; +LISI10TA11 PO; +LORA10TA19 PO
[2019-07-04 16:31] VITALS: BP 125/78
--- NOTE | 2019-07-04 16:32 | NUR ---
PT AMBULATED TO CHAIR A
--- NOTE | 2019-07-04 17:00 | NUR ---
79 Y/O MALE PRESENTS TO ER WITH LEFT FOOT TOE PAIN ON THIRD DIGIT THAT BEGAN YESTERDAY. DENIES ANY INJURY. TOE HAS BLOODY DISCHARGE, NON BLANCHABLE REDNESS. ERYTHEMA AND SWELLING NOTED AT SITE. PEDAL PULSES 3+. PT ALSO COMPLAINING OF URINARY FREQUENCY, DENIES ANY BURNING/PAIN WITH URINATION. RESP EVEN AND UNLABORED. DENIES SOB/CP. PMH : HTN, ARTHRITIS ALLERGIES: IBUPROFEN
--- NOTE | 2019-07-04 17:09 | NUR ---
URINE SAMPLE WALKED OVER TO LAB
[2019-07-04 17:14] LABS: APPEARANCE,URINE HAZY (CLEAR); BILIRUBIN,URINE NEGATIVE (NEGATIVE); BLOOD, URINE TRACE-I (NEGATIVE); COLOR,URINE YELLOW (YELLOW); LEUKOCYTE ESTERASE ,URINE 1+ (NEGATIVE); NITRITE, URINE NEGATIVE (NEGATIVE); PH,URINE 5.5 (5.0-9.0); UGLUCOSE NEGATIVE (NEGATIVE)
[2019-07-04 17:23] LABS: RBC,URINE 0-5 /HPF (0-5)
[2019-07-04 17:43] VITALS: BP 125/78
--- NOTE | 2019-07-04 17:44 | NUR ---
Patient discharged with v/s stable. Written and verbal after care instructions given and explained. Patient alert, oriented and verbalized understanding of instructions. Ambulatory with steady gait. All questions addressed prior to discharge. ID band removed. Patient advised to follow up with PMD. Rx of KEFLEX, MACROBID given. Patient educated on indication of medication including possible reaction and side effects. Opportunity to ask questions provided and answered.
== END 2019-07-04 17:44 | disposition home or self-care (01) ==
LOC: MED 16:21
DX: N39.0 Urinary tract infection, site not specified (principal); L03.032 Cellulitis of left toe; I10 Essential (primary) hypertension; Z79.899 Other long term (current) drug therapy; Z88.8 Allergy status to other drugs, medicaments and biological substances
CPT/HCPCS: 81001; 81002; 87086; 87186; 99283

== ENCOUNTER 2020-03-22 13:55 | Emergency (ER) | payer OTHER ==
[~2020-03-22] VITALS: Ht 170.2 cm; Wt 90.3 kg
[2020-03-22 14:31] VITALS: BP 140/85
--- NOTE | 2020-03-22 14:35 | NUR ---
Pt taken to bed 10 and placed in covid precautions.
--- NOTE | 2020-03-22 14:55 | NUR ---
80 Y/O MALE C/O PRODUCTIVE COUGH X 1WK. ALSO REPORTS EXERTIONAL SOB; AND 2-3 DAYS OF PRESSURE IN CHEST. DENIES FEVER, N/V/D, CHILLS. COVID POS IN OCTOBER, RE-TESTED MOST RECENTLY ON 03/20/20 WITH NEGATIVE RESULT. HX- HTN, ARTHRITIS
--- NOTE | 2020-03-22 15:27 | NUR ---
Dr Marte at bedside examining pt
[2020-03-22 15:40] VITALS: BP 140/85
--- NOTE | 2020-03-22 15:40 | NUR ---
Patient discharged with v/s stable. Written and verbal after care instructions given and explained. Patient alert, oriented and verbalized understanding of instructions. Ambulatory with steady gait. All questions addressed prior to discharge. ID band removed. Patient advised to follow up with PMD. Rx of prednisone 20mg tab TID AM given. Patient educated on indication of medication including possible reaction and side effects. Opportunity to ask questions provided and answered.
== END 2020-03-22 15:40 | disposition home or self-care (01) ==
LOC: MED 13:55
DX: R05 Cough (principal); I10 Essential (primary) hypertension; Z88.6 Allergy status to analgesic agent; Z90.49 Acquired absence of other specified parts of digestive tract; Z85.9 Personal history of malignant neoplasm, unspecified; Z90.89 Acquired absence of other organs; Z79.899 Other long term (current) drug therapy
CPT/HCPCS: 93005; 96365; 96375; 99283; 99285